=== PATIENT | male | born 1985 | race African-American/Black ===

== ENCOUNTER → 2016-10-02 | Outpatient (CLI) | payer BC ==
[~2016-10-02] MED LIST: NO MEDICATIONS
--- NOTE | ~2016-10-02 | CR170 ---
[facility]. [facility] A Service of [facility] & [facility] RADIOLOGY TEXT RESULTS PATIENT: JANE CHACKO LOCATION: [facility] : 83 UNIT #: [id number] AGE: [address]: Toby Humphreys MD SEX: M ORDER DR: [id number] [place] [id number] O MR#: [id number] Acc #: [id number] NAME: JANE CHACKO : 1985 SEX: M STUDY DATE/TIME: 10/02/2016 13:11 UNIT: SRAD ROOM: STUDY DESCRIPTION: CR Knee 2 Views Rt Attending Physician: Toby Humphreys M.D. Referring Physician: Toby Humphryes M.D. Ordering Physician: Toby Humphreys M.D. Primary Care Physician: Toby Humphreys M.D. MEDICAL IMAGING REPORT This report is preliminary unless electronic signature is present. EXAM Right knee 2 views 10/02/2016 HISTORY Right knee pain and swelling for 1 year with no known injury. FINDINGS AP and lateral projection of the knee shows smooth articular anatomy without indication of fracture or dislocation at the major weight-bearing surface of the knee. There is no indication of radiopaque foreign body about the knee surface or joint effusion. IMPRESSION Normal knee. Dictated by... Baljit Griffin M.D. THIS IS AN ELECTRONICALLY VERIFIED REPORT Baljit Griffin M.D. at 10/03/2016 8:07 AM JADE/lisa TD: 10/02/2016 16:14 JOB #: [id number] MEDICAL IMAGING REPORT Page 1 of 1
--- NOTE | ~2016-10-02 | CR169 ---
[facility]. [facility] A Service of [facility] & [facility] RADIOLOGY TEXT RESULTS PATIENT: JANE CHACKO LOCATION: [facility] : 83 UNIT #: [id number] AGE: [address]: Toby Humphreys MD SEX: M ORDER DR: [id number] [place] [id number] O MR#: [id number] Acc #: [id number] NAME: JANE CHACKO : 1985 SEX: M STUDY DATE/TIME: 10/02/2016 13:11 UNIT: SRAD ROOM: STUDY DESCRIPTION: CR Knee 2 Views Lt Attending Physician: Toby Humphreys M.D. Referring Physician: Toby Humphreys M.D. Ordering Physician: Toby Humphreys M.D. Primary Care Physician: Toby Humphreys M.D. MEDICAL IMAGING REPORT This report is preliminary unless electronic signature is present. EXAM Left knee, 2 views, 10/02/2016. HISTORY Left knee pain for 10 years with swelling. No known injury. FINDINGS 2 views of the left knee demonstrate no fracture. There is degenerative change with osteophytic spurring extending off the femoral condyles, the tibial plateau, and the posterior aspect of the patella. The joint space is otherwise normally maintained. There is no joint effusion. IMPRESSION Degenerative change about the left knee. No acute abnormality. Dictated by... Baljit Griffin M.D. THIS IS AN ELECTRONICALLY VERIFIED REPORT Baljit Griffin M.D. at 10/03/2016 8:07 AM Dontrell TD: 10/02/2016 16:11 JOB #: [id number] MEDICAL IMAGING REPORT Page 1 of 1
== END | disposition home or self-care (01) ==
LOC: SRAD 12:57
DX: M25.561 Pain in right knee (principal); M25.562 Pain in left knee
CPT/HCPCS: 73560